=== PATIENT | male | born 1955 | race American Indian/Alaskan Native ===

== ENCOUNTER 2022-04-28 10:18 | Outpatient (CLI) | payer MEDICARE ==
--- NOTE | 2022-04-28 15:44 | Ultrasound Report ---
ULTRASOUND ABDOMEN, COMPLETE INDICATION / CLINICAL INFORMATION: R74.8. Abnormal levels of other serum enzymes. COMPARISON: None available. FINDINGS: PANCREAS: No significant abnormality. ABDOMINAL AORTA: No significant abnormality. IVC: No significant abnormality. LIVER: The liver is normal in size measuring 13.7 cm. Multiple hepatic cysts. The largest is mildly c omplex measuring 3.4 cm within the right lobe. Normal hepatopedal blood flow within the main portal v ein. GALLBLADDER: No significant abnormality. BILE DUCTS: No significant abnormality. Common bile duct measures 2 mm. KIDNEYS: Right: The right kidney measures 9.3 cm. Minimally complex midpole cyst measuring 2.9 cm wit h thin internal septation Left: The left kidney measures 9.6 cm. Multiple cysts. The largest is comp tad measuring 2.7 cm within the midpole. SPLEEN: The spleen measures 10.1 cm. No significant abnormality. FREE FLUID: None. ADDITIONAL FINDINGS: None. IMPRESSION: 1. No acute sonographic abnormality. 2. Multiple mildly complex hepatic and bilateral renal cysts, as described above. Scribed by: Evie Carlos RDMS, SWEETIE, CINDY Scribed: 04/28/2022 1:45 PM I have reviewed the images, agree with this report, and edited this report as needed. Signer Name: Max Horner MD Signed: 04/28/2022 3:40 PM Workstation Name: [id number]
== END 2022-04-28 10:19 | disposition home or self-care (01) ==
LOC: US 10:18
DX: N28.1 Cyst of kidney, acquired (principal); K76.89 Other specified diseases of liver; R74.8 Abnormal levels of other serum enzymes
CPT/HCPCS: 76700